=== PATIENT | female | born 1955 | race Caucasian/White ===

== ENCOUNTER 2017-05-17 13:00 | Outpatient (CLI) | payer MEDICARE, BC ==
[2017-05-17 14:23] LABS: #Basophils 0.1 thou/uL (0.0-0.2); #Eosinphils 0.2 thou/uL (0.0-0.7); #Lymphocytes 1.6 thou/uL (1.20-3.40); #Monocytes 0.6 thou/uL (0.11-0.59); %Basophils 0.7 % (0.0-1.0); %Eosinophils 2.2 % (0.0-10.0); %Lymphocytes 21.6 % (21.0-51.0); %Monocytes 7.5 % (0.0-10.0); %Neutrophils 68.1 % (42.0-75.0); Hemoglobin 14.4 g/dL (12.0-16.0); Mean Corpuscular Hemoglobin 28.8 pg (27.0-31.0); Mean Platelet Volume 6.6 fL (7.4-10.4); Platelet Count 292 thou/uL (130-400); RBC Distribution Width 13.5 % (11.5-14.5); White Blood Cell (WBC) Count 7.3 thou/uL (4.8-10.8)
[2017-05-17 14:29] LABS: Hemoglobin A1c 5.1 % (4.0-6.0)
[2017-05-17 14:44] LABS: ALT (SGPT) 18 U/L (8-55); AST (SGOT) 17 U/L (5-34); Albumin 4.4 g/dL (3.5-5.0); Alkaline Phosphatase 124 U/L (40-150); Anion Gap 11 mmol/L (10-20); BUN (Urea Nitrogen) 20 mg/dL (9.8-20.1); Bilirubin, Direct 0.2 mg/dL (0.1-0.3); Bilirubin, Total 0.4 mg/dL (0.2-1.2); Calc. Creatinine Clearance 0 mL/min (70-130); Calcium 9.8 mg/dL (7.8-10.44); Carbon Dioxide 28 mmol/L (22-29); Chloride 103 mmol/L (98-107); Estimated GFR-MDRD 87; Globulin 2.3 g/dL (2.4-3.5); Glucose 94 mg/dL (70-105); Potassium 4.1 mmol/L (3.5-5.1); Protein, Total 6.7 g/dL (6.0-8.3); Sodium 138 mmol/L (136-145)
--- NOTE | 2017-05-17 15:58 | RAD ---
TWO VIEW CHEST 05/17/17 HISTORY: Preoperative evaluation. The lungs are clear. No infiltrate seen. Heart and mediastinum unremarkable. Osseous structures are u nremarkable. IMPRESSION: No acute finding. POS: OFF
== END 2017-05-17 13:01 | disposition home or self-care (01) ==
LOC: LABBT 13:00
PROVIDERS: ATTEND Surgery
DX: Z01.818 Encounter for other preprocedural examination (principal); Z01.812 Encounter for preprocedural laboratory examination; I10 Essential (primary) hypertension; Z68.39 Body mass index [BMI] 39.0-39.9, adult
CPT/HCPCS: 71046; 80053; 80076; 83036; 85025; 93005; 93010

== ENCOUNTER 2017-05-17 13:00 | Inpatient (IN) | payer MEDICARE, BC ==
[2017-05-17 13:22] VITALS: BMI 39.6
[2017-05-30] MEDS ORDERED: CEFAZOLIN/Water 2 GM/20 ML SYRINGE ONE (06:19)
[2017-05-30] MEDS ORDERED: Heparin 5,000 UNITS/ML VIAL ONE (06:21)
[2017-05-30] MEDS ORDERED: Albumin 5% 500 ML ONE (07:03)
[2017-05-30] MEDS ORDERED: Promethazine HCl 25 MG/ML VIAL ONE ×2 (07:03→10:01)
[2017-05-30] MEDS ORDERED: HYDROmorphone 0.5 MG/0.5 ML SYRINGE ONE (07:03)
[2017-05-30] MEDS ORDERED: Fentanyl 250 MCG/5 ML VIAL ONE ×2 (07:03→09:25)
[2017-05-30] MEDS ORDERED: Bupivacaine/Epinephrine 0.25% 30 ML VIAL ONE (07:21)
[2017-05-30] MEDS ORDERED: PROPOFOL 200 MG/20 ML VIAL ONE (07:40)
[2017-05-30] MEDS ORDERED: Ketorolac Tromethamine 30 MG/ML VIAL ONE (07:40)
[2017-05-30] MEDS ORDERED: Glycopyrrolate 0.2 MG/ML 5 ML SYRINGE ONE (07:40)
[2017-05-30] MEDS ORDERED: Dexamethasone 20 MG/5 ML VIAL ONE (07:40)
[2017-05-30] MEDS ORDERED: Lidocaine 1% PF 5 ML VIAL ONE (07:40)
[2017-05-30] MEDS ORDERED: Ondansetron HCl/PF 4 MG/2 ML Vial ONE ×2 (07:40→09:26)
[2017-05-30] MEDS ORDERED: Promethazine HCl 25 MG/ML VIAL SLOW IVP PRN (09:05)
[2017-05-30] MEDS ORDERED: Ondansetron HCl/PF 4 MG/2 ML Vial IVP PRN ×2 (09:05→12:18)
[2017-05-30] MEDS ORDERED: Promethazine HCl 25 MG/ML VIAL IM PRN ×3 (09:05→12:18)
[2017-05-30] MEDS ORDERED: HYDROmorphone 2 MG/ML VIAL SLOW IVP PRN (09:05)
[2017-05-30] MEDS ORDERED: diphenhydrAMINE 25 MG CAP PO PRN (09:52)
[2017-05-30] MEDS ORDERED: Naloxone HCl 0.4 mg/ml Vial IV PRN (09:52)
[2017-05-30] MEDS ORDERED: diphenhydrAMINE 50 MG/ML VIAL IM PRN (09:52)
[2017-05-30] MEDS ORDERED: Fentanyl 5000 MCG/250 ML CADD IVPB PRN (09:52)
[2017-05-30] MEDS ORDERED: diphenhydrAMINE 50 MG/ML VIAL IVP PRN ×2 (09:52→12:18)
[2017-05-30] MEDS ORDERED: Zolpidem Tartrate 5 MG TAB PO PRN (09:52)
[2017-05-30] MEDS ORDERED: fentaNYL Citrate/PF 2,000 MCG in Sodium Chloride 0.9% 60 ML IV PRN ×2 (10:00→10:15)
[2017-05-30] MEDS ORDERED: Communication Order-Pharmacy FS SCH (10:00)
--- NOTE | 2017-05-30 10:21 | OP ---
DATE OF SURGERY: 05/30/2017 PREOPERATIVE DIAGNOSES: 1. Morbid obesity with a body mass index of 40 2. Hypertension. POSTOPERATIVE DIAGNOSES: 1. Morbid obesity with a body mass index of 40 2. Hypertension. PROCEDURES PERFORMED: 1. Laparoscopic sleeve gastrectomy with [place] staple line reinforcements and 38 [place] bougie. 2. Esophagogastroduodenoscopy. SURGEON: Georges Avila M.D. ANESTHESIA: General. ESTIMATED BLOOD LOSS: Minimal. COMPLICATIONS: None. SPECIMEN: Stomach. FINDINGS: Normal postoperative EGD. PROCEDURE IN DETAIL: The patient was taken to the operating room and placed supine on the table. Af ter general anesthetic is obtained, arms and legs are double strapped to bariatric table. The abdome n was prepped and draped in a sterile fashion. Left subcostal 5-mm Optiview trocar was placed in the usual fashion and high-flow pneumoperitoneum was obtained. Left and right abdominal 12-mm ports and a right subcostal 5 murmur port were placed under direct visualization. A 5 mm incision was made at the xiphoid and Mark used to raise the liver off the GE junction. Short gastric were taken ramon n from mid body of the stomach all the way to the left nola of the diaphragm. Left nola posterior fu ndus and angle of His completely dissected. Short gastrics were taken down to a distance of 5 cm pro ximal to the pylorus. OG tube was removed and 38-[place] bougie was brought in and its tip left in th e antrum of the stomach. Multiple loads of an [place] stapling device used to form the sleeve. The first was fired at a distance of 5 cm proximal to pylorus angled up towards the incisura. The stomac h was completely transected at the angle of His. The stomach was removed from left abdominal incisio n. This fascial defect was closed using GraNee needle 0 Vicryl tie. All port sites were infiltrated using local anesthetic. EGD scope was passed into the esophagus, stomach to the level of duodenum w ithout obstruction. There was no stricture or stenosis at the incisura. There was no bleeding on th e internal staple line, no air leakage. EGD scope was used to decompress the stomach, pulled and rem [place]. The Mark retractor was removed under direct visualization without bleeding. Pneumoperito neum was let down. All ports were removed under camera visualization without bleeding. 4-0 Monocryl and Dermabond were used to close all skin incisions. Patient went to recovery in stable condition. All instrument counts, needle counts, lap counts were correct.
[2017-05-30] MEDS ORDERED: NS 0.9% w/ 20 MEQ KCL 0 ML ONE (10:51)
[2017-05-30] MEDS ORDERED: Dextrose 50% Abboject 50 ML SYRINGE SLOW IVP PRN (12:18)
[2017-05-30] MEDS ORDERED: Levothyroxine Sodium 50 MCG TAB PO SCH (12:18)
[2017-05-30] MEDS ORDERED: Pantoprazole 40 MG VIAL IVP SCH (12:18)
[2017-05-30] MEDS ORDERED: Hydrocodone-Acetamin 15 ML UDCUP PO PRN (12:18)
[2017-05-30] MEDS ORDERED: hydrALAZINE 20 MG/ML VIAL SLOW IVP PRN (12:18)
[2017-05-30] MEDS ORDERED: Dextrose 5% in Water 1,000 ML IV PRN (12:18)
[2017-05-30] MEDS: Acetaminophen 1,000 MG in Premix Bag 1 BAG IVPB SCH ×2 (12:56→18:08)
[2017-05-30] MEDS: D5 1/2 NS w/20 mEq KCL 1,000 ML IV SCH ×2 (12:56→20:01)
[2017-05-30] MEDS ORDERED: D5 1/2 NS w/20 mEq KCL 1,000 ML ONE (14:13)
[2017-05-30] MEDS: Ondansetron HCl/PF 4 MG/2 ML Vial IVP PRN (14:38)
[2017-05-30 19:47] VITALS: TEMP 98.9
[2017-05-30] MEDS: Enoxaparin Sodium 40 MG/0.4 ML SYRINGE SC SCH ×2 (20:01→20:06)
[2017-05-30] MEDS: Ketotifen Fumarate 0.025% Ophth Soln 5 ml Bottle EA EYE SCH (20:02)
[2017-05-30] MEDS ORDERED: Non-Formulary Item 1 EACH (Olopatadine Hcl [Olopatadine Hcl] 1 DROP) EA EYE SCH (21:00)
[2017-05-30] MEDS ORDERED: Non-Formulary Item 1 EACH (Losartan Potassium [Losartan Potassium] 50 MG) PO SCH (21:00)
[2017-05-30] MEDS ORDERED: Losartan 25 MG TAB PO SCH (21:00)
[2017-05-31] MEDS: Acetaminophen 1,000 MG in Premix Bag 1 BAG IVPB SCH (01:02)
[2017-05-31 04:31] LABS: #Lymphocytes 1.4 thou/uL (1.20-3.40); #Monocytes 0.9 thou/uL (0.11-0.59); #Neutrophils 7.7 thou/uL (1.40-6.50); %Basophils 0.2 % (0.0-1.0); %Eosinophils 0.1 % (0.0-10.0); %Lymphocytes 14.2 % (21.0-51.0); %Neutrophils 76.4 % (42.0-75.0); Hemoglobin 13.8 g/dL (12.0-16.0); Mean Corpuscular HGB CONC 33.1 g/dL (32.0-36.0); Mean Corpuscular Hemoglobin 28.5 pg (27.0-31.0); Mean Corpuscular Volume 86.1 fl (81.0-99.0); Mean Platelet Volume 6.7 fL (7.4-10.4); Platelet Count 291 thou/uL (130-400); RBC Distribution Width 13.5 % (11.5-14.5); Red Blood Cell (RBC) Count 4.85 mill/uL (4.20-5.40); White Blood Cell (WBC) Count 10.1 thou/uL (4.8-10.8)
[2017-05-31 04:39] LABS: Anion Gap 10 mmol/L (10-20); BUN (Urea Nitrogen) 7 mg/dL (9.8-20.1); Calc. Creatinine Clearance 132 mL/min (70-130); Carbon Dioxide 26 mmol/L (22-29); Chloride 104 mmol/L (98-107); Estimated GFR-MDRD 88; Glucose 153 mg/dL (70-105); Potassium 4.1 mmol/L (3.5-5.1); Sodium 136 mmol/L (136-145)
[2017-05-31] MEDS: D5 1/2 NS w/20 mEq KCL 1,000 ML IV SCH (04:41)
[2017-05-31 08:20] VITALS: BP 159/78
[2017-05-31] MEDS: Ondansetron HCl/PF 4 MG/2 ML Vial IVP PRN (08:39)
[2017-05-31] MEDS: Ketotifen Fumarate 0.025% Ophth Soln 5 ml Bottle EA EYE SCH (08:44)
[2017-05-31] MEDS ORDERED: Pantoprazole 40 MG VIAL IVP SCH (09:00)
[2017-05-31] MEDS ORDERED: Levothyroxine Sodium 50 MCG TAB PO SCH (09:00)
--- NOTE | 2017-05-31 10:26 | DIS ---
ADMIT DIAGNOSIS: Morbid obesity. DISCHARGE DIAGNOSIS: Morbid obesity. PROCEDURES: Laparoscopic sleeve by Dr. Avila without complication. CONDITION AT DISCHARGE: Improved. STAFF: Dr. Georges Avila. HOSPITAL COURSE: On postop day 1, the patient started on liquid diet, minimal nausea. She is ambula tory. Vital signs are stable. Her abdomen is soft, nontender. Wounds are healing well. She is to be discharged home. Prescriptions for Lortab elixir and ondansetron ODT were already called into her pharmacy. She will follow up with me in 2 weeks.
== END 2017-05-31 11:29 | disposition home or self-care (01) | DRG 621 ==
LOC: SURG A 05-30 05:53
PROVIDERS: ADMIT Surgery; ATTEND Surgery
PROC: 0DB64Z3 Excision of Stomach, Percutaneous Endoscopic Approach, Vertical (ICD-10-PCS; principal; 2017-05-30)
DX: E66.01 Morbid (severe) obesity due to excess calories (principal); I10 Essential (primary) hypertension; Z68.41 Body mass index [BMI] 40.0-44.9, adult
CPT/HCPCS: 36415; 80048; 85025; 88307; 88312; C9113; J0131; J1100; J1170; J1644; J1650; J1885; J2001; J2405; J2550; J2704; J3010; J7050; P9045

== ENCOUNTER 2017-09-20 07:26 | Outpatient (CLI) | payer MEDICARE, BC | END 2017-09-20 07:27 | disposition home or self-care (01) | LOC: BICULT 07:26 | PROVIDERS: ATTEND Surgery | DX: R10.13 Epigastric pain (principal); R93.2 Abnormal findings on diagnostic imaging of liver and biliary tract | CPT/HCPCS: 76705 ==

== ENCOUNTER 2018-05-14 08:10 | Outpatient (CLI) | payer MEDICARE, BC ==
--- NOTE | 2018-05-21 15:33 | MMO ---
Bilateral MAMMO Bilat Screen [facility]. CLINICAL HISTORY: Patient is 62 years old and is seen for screening. The patient has the following family history of breast cancer: sister. The patient has no personal history of cancer. VIEWS: The views performed were: bilateral craniocaudal with tomosynthesis and bilateral mediolateral oblique with tomosynthesis. FILMS COMPARED: The present examination has been compared to prior imaging studies performed at MAMMOGRAM FINDINGS: The breasts are heterogeneously dense, which could obscure a lesion on mammography. Benign calcifications are noted bilaterally. There are no suspicious masses, calcifications or areas of architectural distortion. IMPRESSION: FINDINGS IN BOTH BREASTS ARE BENIGN. A ROUTINE FOLLOW-UP MAMMOGRAM IN 1 YEAR IS RECOMMENDED. THE RESULTS OF THIS EXAM WERE SENT TO THE PATIENT. ACR BI-RADS Category 2 - Benign finding MAMMOGRAPHY NOTE: 1. A negative mammogram report should not delay a biopsy if a dominant of clinically suspicious mass is present. 2. Approximately 10% to 15% of breast cancers are not detected by mammography. 3. Adenosis and dense breasts may obscure an underlying neoplasm.
== END 2018-05-14 08:11 | disposition home or self-care (01) ==
LOC: BICMAMMO 08:10
PROVIDERS: ATTEND Family Medicine
DX: Z12.31 Encounter for screening mammogram for malignant neoplasm of breast (principal); Z80.3 Family history of malignant neoplasm of breast
CPT/HCPCS: 77063; 77067

== ENCOUNTER 2018-09-29 08:05 | Outpatient (CLI) | payer MEDICARE, BC ==
--- NOTE | 2018-09-29 09:05 | BD ---
DEXA BONE MINERAL DENSITY STUDY: HISTORY: Asymptomatic menopausal state. COMPARISON: DEXA exam from 2013. FINDINGS: Lumbar Spine: BMD (g/cm2) L1 1.127 T-Score: 1.2 2.6 L2 1.237 T-Score: 1.9 3.4 L3 1.423 T-Score: 3.1 4.7 L4 1.266 T-Score: 1.9 3.5 L1-L4 1.261 T-Score: 1.9 3.6 WHO classification normal. Femoral Neck: 0.760 T-Score: -0.8 0.4 Total Femur: 1.032 T-Score: 0.7 1.5 WHO classification normal. Impression: Normal bone mineral density. POS: CET
== END 2018-09-29 08:06 | disposition home or self-care (01) ==
LOC: BICMAMMO 08:05
PROVIDERS: ATTEND Family Medicine
DX: Z13.820 Encounter for screening for osteoporosis (principal); Z78.0 Asymptomatic menopausal state
CPT/HCPCS: 77080

== ENCOUNTER 2019-05-20 08:12 | Outpatient (CLI) | payer MEDICARE, BC ==
--- NOTE | 2019-05-20 09:09 | MMO ---
Bilateral MAMMO Bilat Screen [facility]. CLINICAL HISTORY: Patient is 63 years old and is seen for screening. The patient has the following family history of breast cancer: sister. The patient has no personal history of cancer. VIEWS: The views performed were: bilateral craniocaudal with tomosynthesis and bilateral mediolateral oblique with tomosynthesis. FILMS COMPARED: The present examination has been compared to prior imaging studies performed at [facility] on 05/14/2018. This study has been interpreted with the assistance of computer-aided detection. MAMMOGRAM FINDINGS: The breasts are heterogeneously dense, which could obscure a lesion on mammography. Benign calcifications are noted bilaterally. There are no suspicious masses, suspicious calcifications, or new areas of architectural distortion. IMPRESSION: THERE IS NO MAMMOGRAPHIC EVIDENCE OF MALIGNANCY. A ROUTINE FOLLOW-UP MAMMOGRAM IN 1 YEAR IS RECOMMENDED. THE RESULTS OF THIS EXAM WERE SENT TO THE PATIENT. ACR BI-RADS Category 2 - Benign finding MAMMOGRAPHY NOTE: 1. A negative mammogram report should not delay a biopsy if a dominant of clinically suspicious mass is present. 2. Approximately 10% to 15% of breast cancers are not detected by mammography. 3. Adenosis and dense breasts may obscure an underlying neoplasm. Reported by: GAIL MATTHEWS MD Electonically Signed: [id number]
== END 2019-05-20 08:13 | disposition home or self-care (01) ==
LOC: BICMAMMO 08:12
PROVIDERS: ATTEND Family Medicine
DX: Z12.31 Encounter for screening mammogram for malignant neoplasm of breast (principal); Z80.3 Family history of malignant neoplasm of breast
CPT/HCPCS: 77063; 77067

== ENCOUNTER 2020-09-22 19:30 | Outpatient (CLI) | payer MEDICARE, BC | END 2020-09-22 19:31 | disposition home or self-care (01) | LOC: SLEEPLAB 19:30 | PROVIDERS: ATTEND Family Medicine | DX: G47.33 Obstructive sleep apnea (adult) (pediatric) (principal); R53.83 Other fatigue; R09.89 Other specified symptoms and signs involving the circulatory and respiratory systems; F31.9 Bipolar disorder, unspecified; K21.9 Gastro-esophageal reflux disease without esophagitis; R06.83 Snoring; F41.9 Anxiety disorder, unspecified; R35.1 Nocturia; G47.10 Hypersomnia, unspecified; G47.00 Insomnia, unspecified; I10 Essential (primary) hypertension; E66.9 Obesity, unspecified; Z68.35 Body mass index [BMI] 35.0-35.9, adult | CPT/HCPCS: 95810 ==

== ENCOUNTER 2021-02-23 08:55 | Outpatient (CLI) | payer MEDICARE, BC | END 2021-02-23 08:56 | disposition home or self-care (01) | LOC: BICMAMMO 08:55 | PROVIDERS: ATTEND Family Medicine | DX: Z12.31 Encounter for screening mammogram for malignant neoplasm of breast (principal); Z80.3 Family history of malignant neoplasm of breast | CPT/HCPCS: 77063; 77067 ==

== ENCOUNTER 2022-02-06 11:20 | Outpatient (CLI) | payer MEDICARE, BC ==
[2022-02-06 11:58] LABS: #Eosinphils 0.1 10x3/uL (0.0-0.5); #Monocytes 0.3 10x3/uL (0.0-1.1); #Neutrophils 2.6 10x3/uL (1.5-8.4); %Basophils 0.8 % (0.0-2.0); %Eosinophils 2.6 % (0.0-6.0); %Lymphocytes 38.5 % (18.0-47.0); %Monocytes 6.5 % (0.0-10.0); %Neutrophils 51.4 % (40.0-75.0); Hemoglobin 13.9 g/dL (12.0-15.5); Mean Corpuscular HGB CONC 33.7 g/dL (32.0-36.0); Mean Corpuscular Hemoglobin 29.3 pg (27.0-33.0); Mean Corpuscular Volume 86.7 fl (81.6-98.3); Mean Platelet Volume 9.5 fl (7.4-10.4); Platelet Count 260 10x3/uL (150-450); RBC Distribution Width 13.9 % (11.5-14.5); Red Blood Cell (RBC) Count 4.75 10x6/uL (3.90-5.03); White Blood Cell (WBC) Count 5.1 10x3/uL (3.5-10.5)
[2022-02-06 12:07] LABS: Anion Gap 13 mmol/L (10-20); BUN (Urea Nitrogen) 12 mg/dL (9.8-20.1); Calc. Creatinine Clearance 0 mL/min (70-130); Calcium 9.4 mg/dL (7.8-10.44); Carbon Dioxide 25 mmol/L (23-31); Chloride 107 mmol/L (98-107); Estimated GFR 83; Glucose 87 mg/dL (80-115); Potassium 4.2 mmol/L (3.5-5.1); Sodium 141 mmol/L (136-145)
== END 2022-02-06 11:21 | disposition home or self-care (01) ==
LOC: LABBT 11:20
PROVIDERS: ATTEND Orthopaedic Surgery
DX: Z01.818 Encounter for other preprocedural examination (principal); S46.012A Strain of muscle(s) and tendon(s) of the rotator cuff of left shoulder, initial encounter
CPT/HCPCS: 71046; 80048; 85025

== ENCOUNTER 2022-02-08 07:16 | Day surgery (SDC) | payer OTHER, MEDICARE, BC ==
[2022-02-07 13:38] VITALS: BMI 32.8
[2022-02-08] MEDS ORDERED: Tranexamic Acid 1,000 MG/10 ML VIAL ONE (08:26)
[2022-02-08] MEDS ORDERED: Sodium Chloride 0.9% 100 ML ONE ×2 (08:26→09:33)
[2022-02-08] MEDS ORDERED: Vancomycin 1 GM/200 ML (FROZEN) BAG ONE (08:26)
[2022-02-08] MEDS ORDERED: Midazolam HCl 2 mg/2 ml Vial ONE (08:56)
[2022-02-08] MEDS ORDERED: Ropivacaine 0.5% HCl/PF (150 MG/30 ML VIAL) ONE (08:56)
[2022-02-08] MEDS ORDERED: FENTANYL 50 MCG/ML 1 ML VIAL ONE (08:56)
[2022-02-08] MEDS ORDERED: CEFAZOLIN 2 GM VIAL ONE (09:33)
[2022-02-08] MEDS ORDERED: fentaNYL PF 100 MCG/2 ML SYRINGE ONE (09:48)
[2022-02-08] MEDS ORDERED: PROPOFOL 200 MG/20 ML VIAL ONE (10:10)
[2022-02-08] MEDS ORDERED: NEOSTIGMINE 3 MG/3 ML SYR 3 MG/3 ML SYRINGE ONE (10:10)
[2022-02-08] MEDS ORDERED: Glycopyrrolate 0.2 MG/ML 5 ML SYRINGE ONE (10:10)
[2022-02-08] MEDS ORDERED: Ondansetron PF 4 MG/2 ML Vial ONE (10:10)
[2022-02-08] MEDS ORDERED: Phenylephrine 10 MG/ML VIAL ONE (10:10)
[2022-02-08] MEDS ORDERED: ePHEDrine 50 MG/ML VIAL ONE (10:10)
[2022-02-08] MEDS ORDERED: Rocuronium Bromide 10 MG/ML (10ML VIAL) ONE (10:10)
[2022-02-08] MEDS ORDERED: Dexamethasone 20 MG/5 ML VIAL ONE (10:10)
[2022-02-08] MEDS ORDERED: FENTANYL 50 MCG/ML 1 ML VIAL SLOW IVP PRN (11:18)
[2022-02-08] MEDS ORDERED: SUGAMMADEX SODIUM 200 MG/2 ML VIAL ONE (11:26)
[2022-02-08] MEDS ORDERED: Ropivacaine 0.2% 550 ML 550 ML NERVE BLCK SCH (11:30)
[2022-02-08] MEDS ORDERED: Ondansetron PF 4 MG/2 ML Vial IVP PRN (11:30)
[2022-02-08] MEDS ORDERED: HYDROcodone/Acetaminophen 5/325 mg Tablet PO PRN ×2 (11:30)
[2022-02-08] MEDS ORDERED: Zolpidem Tartrate 5 MG TAB PO PRN (11:30)
[2022-02-08] MEDS ORDERED: Promethazine HCl 25 MG/ML VIAL IM PRN (11:30)
[2022-02-08] MEDS ORDERED: traMADol HCl 50 MG TAB PO PRN ×2 (11:30)
[2022-02-08] MEDS ORDERED: Ketorolac Tromethamine 30 MG/ML VIAL IVP SCH (12:00)
[2022-02-08] MEDS ORDERED: HYDROcodone/Acetaminophen 5/325 mg Tablet ONE (13:33)
== END 2022-02-08 14:21 | disposition home or self-care (01) ==
LOC: SDC 07:16
PROVIDERS: ATTEND Orthopaedic Surgery
PROC: 0RRK00Z Replacement of Left Shoulder Joint with Reverse Ball and Socket Synthetic Substitute, Open Approach (ICD-10-PCS; principal; 2022-02-08)
DX: S46.012A Strain of muscle(s) and tendon(s) of the rotator cuff of left shoulder, initial encounter (principal); M75.22 Bicipital tendinitis, left shoulder; J45.909 Unspecified asthma, uncomplicated; I10 Essential (primary) hypertension; Z87.891 Personal history of nicotine dependence; Z79.890 Hormone replacement therapy; Z79.899 Other long term (current) drug therapy; Z88.2 Allergy status to sulfonamides; Z91.041 Radiographic dye allergy status; Z98.84 Bariatric surgery status; W01.0XXA Fall on same level from slipping, tripping and stumbling without subsequent striking against object, initial encounter
CPT/HCPCS: 23472; 93005; A4306; J3370; 93010; C1713; C1776; J1100; J2250; J2370; J2405; J2704; J2795; J3010; J3490

== ENCOUNTER 2022-07-25 11:12 | Outpatient (CLI) | payer MEDICARE, BC | END 2022-07-25 11:13 | disposition home or self-care (01) | LOC: BICCT 11:12 | PROVIDERS: ATTEND Neurological Surgery | DX: M43.16 Spondylolisthesis, lumbar region (principal); M48.061 Spinal stenosis, lumbar region without neurogenic claudication | CPT/HCPCS: 72131 ==

== ENCOUNTER 2024-11-18 08:39 | Outpatient (CLI) | payer MEDICARE | END 2024-11-18 08:40 | disposition home or self-care (01) | LOC: BICMAMMO 08:39 | PROVIDERS: ATTEND Family Medicine | DX: Z12.31 Encounter for screening mammogram for malignant neoplasm of breast (principal); Z80.3 Family history of malignant neoplasm of breast | CPT/HCPCS: 77063; 77067 ==